=== PATIENT | male | born 1960 | race Caucasian/White ===

== ENCOUNTER 2017-01-29 08:59 | Day surgery (SDC) | payer BC ==
[~2017-01-29 08:59] MED LIST: Lactated Ringers 1,000 ML IV SCH
[2017-01-29] MEDS ORDERED: fentaNYL 100 MCG/2 ML SDV ONE (10:58)
[2017-01-29] MEDS ORDERED: Propofol 200 MG/20 ML SDV ONE (10:59)
[2017-01-29 11:40] VITALS: BP 106/75
--- NOTE | 2017-01-29 17:42 | OR ---
DATE OF SURGERY: 01/29/2017. REFERRING PROVIDER: Eliazar Corrales MD. PRE-OPERATIVE DIAGNOSIS: History of colon polyps. Last colonoscopy was 3 years ago. There is no known family history of colon cancer or colon polyps. POST-OPERATIVE DIAGNOSES: Two small colon polyps, removed. 1. 2 mm cecal polyp, removed with cold forceps. 2. 3 mm polyp at 110 cm, removed with cold forceps. PROCEDURE: Colonoscopy with polypectomy x2 using cold forceps. ANESTHESIA: Monitored anesthesia care. BOWEL PREP: Good. DESCRIPTION OF PROCEDURE: Will is a 56-year-old male, who was brought to the endoscopy suite after discussing risks and benefits of the procedure. Informed consent was obtained for conscious sedation and colonoscopy with or without biopsy and/or polypectomy. We also discussed possibility of missed lesions. Pre-procedure exam was unremarkable. IV, oxygen, and monitors were placed. The patient was placed in the left lateral decubitus position. Sedation was administered and a digital rectal exam was performed and did reveal mild to moderate enlargement of the prostate, but no palpable nodules. Colonoscope was passed into the rectum and slowly advanced all the way to the cecum. Cecum was viewed and photographed. There was noted to be a 2 mm cecal polyp, which was removed using cold forceps. The colonoscope was slowly withdrawn and the mucosa was closed observed in a direct circumferential manner. The ascending colon also revealed a 3 mm polyp at 110 cm, removed with cold forceps. The transverse colon was unremarkable. The descending colon was unremarkable. The sigmoid colon was unremarkable. Retroflexion was performed and rectal mucosa was unremarkable. Scope was removed. The patient tolerated the procedure well. The patient was monitored until that baseline status. Discharge instructions were reviewed and the patient was discharged in good condition. COMPLICATIONS: None. TOTAL TIME: 16 minutes. ESTIMATED BLOOD LOSS: Less than 1 mL. RECOMMENDATIONS/FOLLOW-UP: We will await path report to determine ideal followup interval. I will have the patient hold his aspirin for 3 days to limit any chance of bleeding. I would like to kindly thank Dr. Corrales for this referral. DMB: 01/29/2017 11:37:50 MODL: 01/29/2017 16:58:15 /[id number]
== END 2017-01-29 12:35 | disposition home or self-care (01) ==
LOC: VM.SDS 08:59
PROVIDERS: ATTEND Family Medicine
DX: Z12.11 Encounter for screening for malignant neoplasm of colon (principal); D12.0 Benign neoplasm of cecum; D12.6 Benign neoplasm of colon, unspecified; E78.00 Pure hypercholesterolemia, unspecified; G47.33 Obstructive sleep apnea (adult) (pediatric); Z98.890 Other specified postprocedural states; Z79.899 Other long term (current) drug therapy
CPT/HCPCS: 45380; J2704; J3010; J7120

== ENCOUNTER 2024-04-08 08:40 | Day surgery (SDC) | payer BC, MEDICARE ==
[2024-04-08] MEDS: Lactated Ringers 1,000 ML IV SCH (09:06)
[2024-04-08] MEDS ORDERED: fentaNYL 100 MCG/2 ML SDV ONE (10:34)
[2024-04-08] MEDS ORDERED: Midazolam 1 MG/ML 2 ML SDV ONE (10:34)
[2024-04-08] MEDS ORDERED: Propofol 200 MG/20 ML SDV ONE (10:34)
[2024-04-08 11:20] VITALS: BP 133/76; PULSE 86
== END 2024-04-08 11:57 | disposition home or self-care (01) ==
LOC: VM.SDS 08:40
PROVIDERS: ATTEND Student in an Organized Health Care Education/Training Program
DX: Z12.11 Encounter for screening for malignant neoplasm of colon (principal); I10 Essential (primary) hypertension; E78.2 Mixed hyperlipidemia; J96.01 Acute respiratory failure with hypoxia; E66.9 Obesity, unspecified; Z86.010 Personal history of colon polyps; Z79.899 Other long term (current) drug therapy
CPT/HCPCS: 00811; 45385; 88305; J2250; J2704; J3010; J7120